=== PATIENT | female | born 1990 | race Caucasian/White ===

== ENCOUNTER 2020-08-27 11:48 | Emergency (ER) | payer OTHER ==
[~2020-08-27] VITALS: Ht 175.3 cm; Wt 84.1 kg
[2020-08-27] MEDS ORDERED: FIOR1CAP PO (12:10)
[2020-08-27] MEDS ORDERED: KETOROLAC 30 MG/ML 1ML VIAL IM ONE (13:15)
[2020-08-27] MEDS ORDERED: ONDANSETRON 4 MG ORAL DISINTEGRATING TAB PO ONE (13:15)
[2020-08-27 15:08] VITALS: BP 125/75
== END 2020-08-27 15:10 | disposition home or self-care (01) ==
LOC: M ED 11:48
DX: G43.909 Migraine, unspecified, not intractable, without status migrainosus (principal); Z88.5 Allergy status to narcotic agent
CPT/HCPCS: 96372; 99283; J1885; Q0162

== ENCOUNTER 2021-03-31 00:01 | Emergency (ER) | payer BC, OTHER ==
[~2021-03-31] VITALS: Ht 175.3 cm; Wt 81.8 kg
[~2021-03-31 00:01] MED LIST: FIOR1CAP PO
[2021-03-31 00:04] VITALS: BP 139/89
[2021-03-31] MEDS ORDERED: KETOROLAC 60MG 2ML VIAL IM ONE (00:20)
[2021-03-31] MEDS ORDERED: ONDANSETRON 4 MG ORAL DISINTEGRATING TAB PO ONE (00:20)
[2021-03-31] MEDS ORDERED: ACETAMINOPHEN 500 MG TAB PO ONE (01:25)
[2021-03-31] MEDS ORDERED: METOCLOPRAMIDE INJ 10MG/2ML VIAL (J2765 PER 1) IV ONE (01:25)
[2021-03-31] MEDS ORDERED: NS 1,000 ML IV ONE (01:25)
[2021-03-31] MEDS ORDERED: MAG SULF 1GM/100ML (MAG RUN) 1 GM in IV 1 EA IV ONE (02:25)
[2021-03-31] MEDS ORDERED: NEXP1IMP SC (15:02)
== END 2021-03-31 06:26 | disposition home or self-care (01) ==
LOC: M ED 00:01
DX: G43.909 Migraine, unspecified, not intractable, without status migrainosus (principal); Z88.5 Allergy status to narcotic agent; Z79.3 Long term (current) use of hormonal contraceptives
CPT/HCPCS: 80047; 84702; 96361; 96372; 96374; 99284; J1885; J2765; Q0162

== ENCOUNTER 2021-03-31 14:37 | Emergency (ER) | payer BC ==
[~2021-03-31] VITALS: Ht 175.3 cm; Wt 84.5 kg
[2021-03-31 14:38] VITALS: BP 137/90
[2021-03-31] MEDS ORDERED: NEXP1IMP SC (15:02)
[2021-03-31] MEDS ORDERED: METOCLOPRAMIDE INJ 10MG/2ML VIAL (J2765 PER 1) IV ONE (17:15)
[2021-03-31] MEDS ORDERED: NS 1,000 ML IV ONE (17:15)
[2021-03-31] MEDS ORDERED: ACETAMINOPHEN 500 MG TAB PO ONE (17:15)
[2021-03-31] MEDS ORDERED: diphenhydrAMINE 50MG/ML VIAL (J1200) IV ONE (17:15)
[2021-03-31] MEDS ORDERED: KETOROLAC 30 MG/ML 1ML VIAL IV ONE (17:15)
--- NOTE | 2021-03-31 18:31 | REPVR ---
PROCEDURE INFORMATION: Exam: CT Head Without Contrast Exam date and time: 03/31/2021 6:18 PM Age: 30 years old Clinical indication: Pain; Headache; Additional info: Persistent headaches TECHNIQUE: Imaging protocol: Computed tomography of the head without contrast. Radiation optimization: All CT scans at this facility use at least one of these dose optimization techniques: automated exposure control; mA and/or kV adjustment per patient size (includes targeted exams where dose is matched to clinical indication); or iterative reconstruction. COMPARISON: No relevant prior studies available. FINDINGS: Brain: Normal. No hemorrhage. Unremarkable white matter. No mass effect. Cerebral ventricles: No ventriculomegaly. Paranasal sinuses: Visualized sinuses are unremarkable. No fluid levels. Mastoid air cells: Visualized mastoid air cells are well aerated. Bones/joints: Unremarkable. No acute fracture. Soft tissues: Unremarkable. IMPRESSION: No acute intracranial abnormality. Electronically signed by: Judd Good On 03/31/2021 18:30:52 PM
== END 2021-03-31 20:08 | disposition home or self-care (01) ==
LOC: M ED 14:37
DX: G43.909 Migraine, unspecified, not intractable, without status migrainosus (principal); F33.9 Major depressive disorder, recurrent, unspecified; Z88.5 Allergy status to narcotic agent; Z79.3 Long term (current) use of hormonal contraceptives
CPT/HCPCS: 70450; 96361; 96374; 96375; 99283; J1200; J1885; J2765